=== PATIENT | female | born 1945 | race Caucasian/White ===

== ENCOUNTER → 2016-06-25 | Outpatient (CLI) | payer OTHER ==
[~2016-06-25] MED LIST: THROMBIN (RECOMBINANT) 5,000 UNIT VIAL TP ONE
--- NOTE | 2016-06-25 20:28 | US ---
Vacuum-Assisted Ultrasound-Guided Core Biopsy of the Left Breast Reason for Examination: Evaluate suspicious solid nodule in the left breast at the 2 o'clock positio n 4 cm from the nipple. Crosscutting Measure #226: Current tobacco user: No. Technique: Informed consent was obtained. Following sterile preparation and local anesthesia and ut ilizing vacuum assistance and sonographic guidance, a 9-gauge Suros needle was advanced into the lesi on. Multiple large core biopsies were obtained. The biopsy was performed with continuous real time sonographic monitoring. A Suros marker was deployed to edmund the biopsy site. The procedure was comp licated by post biopsy hemorrhage. 5000 units of thrombin was injected at the biopsy site. The need le was removed and hemostasis was obtained with extended manual compression. A postprocedural hemato ma was identified. Postbiopsy mammography is postponed because of the hematoma. Discharge instruc tions were given by the Radiology nurse. Impression: Successful sonographically-guided large core left breast biopsy, which was complicated b y a postprocedural hematoma. Material was sent to Pathology. We will await results.
[2016-06-30 14:51] LABS: ACCESSION # HR17-3315 (()); INTERPRETATION See Comments (())
== END ==
LOC: FIMAGING 13:39
PROVIDERS: ATTEND Family Medicine
PROC: 0HBU3ZX Excision of Left Breast, Percutaneous Approach, Diagnostic (ICD-10-PCS; principal; 2016-06-25)
DX: D05.02 Lobular carcinoma in situ of left breast (principal); N64.89 Other specified disorders of breast

== ENCOUNTER → 2016-07-07 | Outpatient (CLI) | payer OTHER ==
[~2016-07-07] MED LIST changes: +GADOBUTROL 10 ML VIAL IVP ONE; -THROMBIN (RECOMBINANT) 5,000 UNIT VIAL TP ONE
[2016-07-07 14:27] LABS: CREATININE 0.6 mg/dL (0.6-1.0); GLOMERULAR FILTRATION RATE > 60
--- NOTE | 2016-07-08 08:23 | MR ---
MRI Breasts Bilateral Without and With Contrast History: History of recent diagnosis of left breast cancer with ultrasound-guided biopsy. Staging. Comparison: Ultrasound and mammography May 2016. Technique: Precontrast sagittal fat-saturated T2-weighted and Vibrant images of both breasts are obt ained. Subsequently, during intravenous administration of 5 mL Gadavist, multiphasic sagittally acqu ired Vibrant MR images through both breasts are obtained. In addition, high resolution axial images were obtained in the axial plane pre and post contrast. Data is sent to [facility] for additional guy sis including 3D reconstruction, computer-aided detection (CAD), and color-coded phase contrast enhan cement evaluation. Findings: Left Breast: There is a 3.2 cm hematoma at the biopsy site in the lateral left breast with a focus of metal susceptibility artifact from the biopsy marker deployed at the biopsy site. There is mild nodu lar enhancement at the inferior margin of the hematoma which could be postbiopsy change or residual m ass. No other findings for mass or abnormal enhancement in the left breast to indicate multifocal or multicentric disease. No evidence for internal mammary or axillary lymph nodes. Right Breast: There is normal enhancement of the right breast. No evidence for mass or abnormal enhan cement to indicate invasive breast carcinoma. No suspicious internal mammary or axillary lymph nodes. Impression: 3.2 cm hematoma at the lateral left breast at the biopsy site at the diagnosed infiltrat ing ductal carcinoma. There is slight nodular enhancement of the inferior margin of the hematoma whic h could be postbiopsy change or residual tumor. No other findings for multifocal or multicentric dise ase in the left breast and no evidence for contralateral breast carcinoma in the right breast. BI-RADS: 6.
== END ==
LOC: FIMAGING 12:37
PROVIDERS: ATTEND Internal Medicine Hematology & Oncology
DX: C50.912 Malignant neoplasm of unspecified site of left female breast (principal); M79.81 Nontraumatic hematoma of soft tissue
CPT/HCPCS: 0159T; A9585; C8908

== ENCOUNTER 2016-08-01 10:09 | Day surgery (SDC) | payer OTHER ==
[~2016-08-01 10:09] MED LIST changes: +AVITENE POWDER 1 GM JAR TP ONE; +BUPIVACAINE 0.25% 30 ML SDV ONE; +BUPIVACAINE/EPI 0.5% 30 ML SDV ONE; -GADOBUTROL 10 ML VIAL IVP ONE; +LIDOCAINE 1% 30 ML SDV ONE; +SODIUM BICARBONATE 10 MEQ/10 ML SYR IVP ONE
[2016-08-01] MEDS ORDERED: fentaNYL 100 MCG/2 ML INJ ONE (12:51)
[2016-08-01] MEDS ORDERED: PROPOFOL/EMULSION 500 MG/50 ML BOTTLE IV ONE (12:52)
[2016-08-01] MEDS ORDERED: MIDAZOLAM 2 MG/2 ML VIAL ONE (12:58)
[2016-08-01] MEDS ORDERED: CEFAZOLIN 1 GM/DEXTROSE/50 ML BAG IV ONE (13:11)
[2016-08-01] MEDS ORDERED: METOCLOPRAMIDE 10 MG/2 ML VIAL ONE (14:38)
[2016-08-01] MEDS ORDERED: ONDANSETRON 4 MG/2 ML VIAL ONE (14:38)
--- NOTE | 2016-08-01 19:26 | GOP ---
DATE OF OPERATION: 08/01/2016 SURGEON: Francis Stinson MD ANESTHESIA: General by laryngeal mask. ANESTHESIOLOGIST: Jeni Castaneda MD. PREOPERATIVE DIAGNOSIS: 1. Left breast carcinoma. 2. Left breast hematoma, status post core needle biopsy. POSTOPERATIVE DIAGNOSIS: 1. Left breast carcinoma. 2. Left breast hematoma, status post core needle biopsy. PROCEDURE PERFORMED: Left partial mastectomy with sentinel lymph node mapping and biopsy. FINDINGS: Two of 2 sentinel nodes negative by frozen section for evidence of metastatic malignancy. Lumpectomy and hematoma excision submitted for specimen mammogram and permanent section. INDICATIONS: The patient is a 70-year-old female with a left breast carcinoma diagnosed by core nee dle biopsy that resulted in a fairly significant hematoma that has been palpable for the past severa l weeks. She elected to undergo breast conservation therapy despite having a BRCA1 mutation. Her t umor is known to be HER-2/shaheed positive. Preoperatively we discussed the options including mastectomy with sentinel node biopsy with or witho ut reconstruction versus breast conservation therapy with a lumpectomy and postop radiation. The pa tient is considering chemotherapy. DESCRIPTION OF PROCEDURE: After informed consent was obtained, the patient was brought to the opera ting room and placed under general anesthesia. The left breast was prepped and draped in the usual fashion. Before proceeding, a time-out and identification of the patient was performed. The Neoprobe was used to interrogate the axilla and the 1st of 2 sentinel nodes identified fairly lo w in the level 1 chain close to the tail of the breast. The skin overlying this node was infiltrate d and incised transversely with the scalpel. Dissection carried down through the skin and subcutane ous tissues and superficial axillary fascia. The node was isolated close to the chest wall, grasped with an Allis forceps. The surrounding lymphovascular structures were hemoclipped and divided and/ or incised with cautery. The node was delivered from the field and registered 11,000 counts per minute. Only one additional sentinel node met criteria of having 10% or greater counts and this was found in the upper level 1 c pam, also close to the chest wall and this node was isolated. The lymphovascular structures were s ecured and the node was excised from the axilla. Both nodes were individually submitted for frozen section as well as permanent section labeled nodes 1 and 2. The 2nd node had counts over 1100 counts per minute. All other nodes in the axilla were either norm al by palpation and/or had counts of under 800 counts per minute. While we were waiting for the results of the frozen section, partial mastectomy was performed as fol francisco js. A curvilinear incision was planned and this was infiltrated with 0.25% Marcaine, incised with a scalpel slightly inferior and lateral to the tumor site. The mass was palpable; it was a hematom a that had subsided somewhat in the last couple of weeks, but was still approximately 1.5 cm in diam eter. The breast tissue for a distance of 10-15 mm in all directions around the hematoma was incise d with a combination of sharp dissection and cautery for hemostasis. The specimen was removed from the field and carefully oriented using a margin marker kit. This was then submitted for specimen ma mmogram as well as pathologic assessment. Hemostasis was secured within the cavity which extended down to the pectoralis serratus border. Tit anium clips were placed into the cavity at the base, denoting the most cephalad medial and lateral a spects of the lumpectomy cavity. Hemostasis appeared secure. Subcutaneous tissues were approximated with 3-0 Monocryl suture. Skin was closed with 4-0 Monocryl suture in a subcuticular fashion. Mastisol and Steri-Strips were applied. The axillary incision wa s closed after we received report from Dr. Azevedo that the sentinel nodes showed no evidence of mal ignancy on frozen section. The cavity was inspected for hemostasis, which appeared secure. Subcutaneous tissues were approximated with 3-0 Monocryl suture. Skin was closed with 4-0 Monocryl suture in subcuticular fashion. Mastisol and Steri-Strips were applied. Needle, sponge and instrum ent count was correct. Estimated blood loss was 25 mL. Complications: None. [employer] SURGEON: Jessica Conner RN-FA. /[id number]/MODL
== END 2016-08-01 16:20 | disposition home or self-care (01) ==
LOC: FSGY 10:09
PROVIDERS: ATTEND Surgery
PROC: 0HBU0ZZ Excision of Left Breast, Open Approach (ICD-10-PCS; principal; 2016-08-01 13:00)
PROC: 07B60ZX Excision of Left Axillary Lymphatic, Open Approach, Diagnostic (ICD-10-PCS; principal; 2016-08-01 13:00)
DX: C50.412 Malignant neoplasm of upper-outer quadrant of left female breast (principal); Z15.01 Genetic susceptibility to malignant neoplasm of breast; Z15.02 Genetic susceptibility to malignant neoplasm of ovary; Z80.41 Family history of malignant neoplasm of ovary; Z87.891 Personal history of nicotine dependence
CPT/HCPCS: 19302; 78195; A9520; J0690; J2250; J2405; J2704; J2765; J3010

== ENCOUNTER → 2016-10-09 | Outpatient (CLI) | payer OTHER | LOC: BHFA 13:00 | PROVIDERS: ATTEND Internal Medicine Cardiovascular Disease | DX: Z51.89 Encounter for other specified aftercare (principal) ==

== ENCOUNTER → 2016-12-26 | Outpatient (CLI) | payer OTHER | LOC: FIMAGING 12:17 | PROVIDERS: ATTEND Family Medicine | DX: Z12.39 Encounter for other screening for malignant neoplasm of breast (principal); N63 Unspecified lump in breast; Z85.3 Personal history of malignant neoplasm of breast | CPT/HCPCS: 76641; G0206 ==

== ENCOUNTER → 2017-01-20 | Outpatient (CLI) | payer OTHER | LOC: BHFA 14:00 | PROVIDERS: ATTEND Internal Medicine Cardiovascular Disease | DX: Z51.11 Encounter for antineoplastic chemotherapy (principal) ==

== ENCOUNTER → 2017-05-18 | Outpatient (CLI) | payer OTHER | LOC: BHFA 14:00 | PROVIDERS: ATTEND Internal Medicine Cardiovascular Disease | DX: Z51.11 Encounter for antineoplastic chemotherapy (principal) ==

== ENCOUNTER → 2017-06-24 | Outpatient (CLI) | payer OTHER ==
[~2017-06-24] MED LIST changes: -AVITENE POWDER 1 GM JAR TP ONE; -BUPIVACAINE 0.25% 30 ML SDV ONE; -BUPIVACAINE/EPI 0.5% 30 ML SDV ONE; +GADOBUTROL 10 ML VIAL IVP ONE; -LIDOCAINE 1% 30 ML SDV ONE; -SODIUM BICARBONATE 10 MEQ/10 ML SYR IVP ONE
== END ==
LOC: FIMAGING 07:45
PROVIDERS: ATTEND Nurse Practitioner
DX: Z08 Encounter for follow-up examination after completed treatment for malignant neoplasm (principal); Z85.3 Personal history of malignant neoplasm of breast
CPT/HCPCS: 0159T; 77066; A9585; C8908

== ENCOUNTER → 2018-03-09 | Outpatient (CLI) | payer OTHER | LOC: FIMAGING 10:03 | PROVIDERS: ATTEND Internal Medicine Hematology & Oncology | DX: Z08 Encounter for follow-up examination after completed treatment for malignant neoplasm (principal); N63.12 Unspecified lump in the right breast, upper inner quadrant; Z85.3 Personal history of malignant neoplasm of breast | CPT/HCPCS: 0159T; A9585; C8908; 82565-PO ==

== ENCOUNTER → 2018-03-19 | Outpatient (CLI) | payer OTHER | LOC: FIMAGING 10:15 | PROVIDERS: ATTEND Internal Medicine Hematology & Oncology | DX: R92.8 Other abnormal and inconclusive findings on diagnostic imaging of breast (principal); Z85.3 Personal history of malignant neoplasm of breast ==

== ENCOUNTER → 2018-03-22 | Outpatient (CLI) | payer OTHER | LOC: FIMAGING 08:54 | PROVIDERS: ATTEND Family Medicine | DX: R92.8 Other abnormal and inconclusive findings on diagnostic imaging of breast (principal) ==

== ENCOUNTER → 2018-04-08 | Outpatient (CLI) | payer OTHER ==
[~2018-04-08] MED LIST changes: +BUPIVACAINE 0.5% 30 ML SDV ONE; +FLUMAZENIL 0.5 MG/5 ML MDV IVP ONE; +FLUMAZENIL 0.5 MG/5 ML MDV IVP PRN; +HEPARIN 10,000 UNIT/10 ML MDV (1,000 UNIT/ML) IVP PRN; +LIDOCAINE 1% 5 ML SDV ONE; +MEPERIDINE 25 MG/ML SYR IVP PRN; +MIDAZOLAM 2 MG/2 ML VIAL IVP PRN; +MIDAZOLAM 2 MG/2 ML VIAL ONE; +NA BICARBONATE 50 MEQ/50 ML VIAL ONE; +NALOXONE HCL 0.4 MG/ML INJ IVP PRN; +NALOXONE HCL 0.4 MG/ML INJ ONE; +NS 1,000 ML IV SCH; +THROMBIN (BOVINE) 5,000 UNIT VIAL TP ONE; +fentaNYL 100 MCG/2 ML INJ IVP PRN; +fentaNYL 100 MCG/2 ML INJ ONE
[2018-04-08 09:21] VITALS: BP 149/86
--- NOTE | 2018-04-08 09:49 | PDGENHP ---
History & Physical Chief Complaint: breast ca, needs mri biopsy right breast Cardiorespiratory Assessment: heart regular, lungs clear
--- NOTE | 2018-04-08 09:50 | PDPROPOC ---
Sedation Plan of Care Sedation Plan of Care: vital signs stable, mental status noted, patient educated of risks, benefits, alternatives, patient can tolerate sedation ASA Classification: ASA 1 Planned drugs: fentanyl, midazolam Mallampati Score: Class 1 Mallampati Reference Image: Patient passed 3-3-2 rule?: Yes
== END ==
LOC: FIMAGING 08:03
PROVIDERS: ATTEND Internal Medicine Hematology & Oncology
PROC: 0HBT3ZX Excision of Right Breast, Percutaneous Approach, Diagnostic (ICD-10-PCS; principal; 2018-04-08)
DX: N60.11 Diffuse cystic mastopathy of right breast (principal); Z15.01 Genetic susceptibility to malignant neoplasm of breast; Z17.0 Estrogen receptor positive status [ER+]; Z85.3 Personal history of malignant neoplasm of breast
CPT/HCPCS: 19085; 77065; 88305; 88341; 88342; 99152; 99153; A9585; J2250; J3010; 82565-PO; J2310